=== PATIENT | male | born 1995 | race Caucasian/White ===

== ENCOUNTER 2023-01-16 00:39 | Inpatient (IN) | payer BC, OTHER ==
[~2023-01-16] VITALS: Ht 172.7 cm; Wt 78.0 kg
[2023-01-16] MEDS ORDERED: SODIUM CHLORIDE 0.9% 1,000 ML IV ONE ×2 (01:45→17:00)
[2023-01-16 01:46] LABS: HEMATOCRIT 47.7 % (41-53); HEMOGLOBIN 14.9 g/dL (13.5-17.5); MEAN CORPUSCULAR HEMOGLOBIN 28.2 pg (26.0-34.0); MEAN CORPUSCULAR HGB CONC 31.2 G/dL (31.0-37.0); MEAN CORPUSCULAR VOLUME 91 fL (80-100); PLATELET COUNT (AUTO) 328 K/uL (150-450); RED BLOOD CELL COUNT(AUTO) 5.27 MIL/uL (4.50-5.90); RED CELL DISTRIBUTION WIDTH 13.5 % (11.5-14.5)
[2023-01-16 01:51] LABS: GLUCOMETER DEV NAME(LOC) ER.6; GLUCOSE,POINT OF CARE 565 MG/DL (70-110)
[2023-01-16] MEDS ORDERED: ONDANSETRON HCL 4 MG/2 ML VIAL IVP ONE (02:00)
[2023-01-16 02:07] LABS: ALBUMIN 4.5 g/dL (3.4-5.0); BILIRUBIN,TOTAL 0.7 mg/dL (0.1-1.0); CALCIUM, TOTAL 9.1 mg/dL (8.8-10.5); CREATININE 1.74 mg/dL (0.60-1.30); TOTAL PROTEIN, SERUM 7.8 g/dL (6.4-8.2)
[2023-01-16 02:10] LABS: POTASSIUM 6.5 mmol/L (3.5-5.1)
[2023-01-16] MEDS ORDERED: SODIUM CHLORIDE 0.9% 1,000 ML IV SCH (02:15)
[2023-01-16] MEDS ORDERED: DEXTROSE 50%-WATER 25 GM/50 ML SYRINGE IVP PRN ×2 (02:15→17:00)
[2023-01-16] MEDS ORDERED: POTASSIUM CHLORIDE 40 MEQ in SODIUM CHLORIDE 0.45% 1,000 ML IV PRN (02:15)
[2023-01-16] MEDS ORDERED: 0.9% SODIUM CHLORIDE 10 ML SYRINGE IVP PRN (02:15)
[2023-01-16] MEDS ORDERED: INSULIN REGULAR, HUMAN 100 UNITS/ML IVP ONE (02:15)
[2023-01-16] MEDS ORDERED: DEXTROSE 5%-0.45% SODIUM CHL 1,000 ML IV PRN (02:15)
[2023-01-16] MEDS ORDERED: ONDANSETRON HCL 4 MG/2 ML VIAL IVP PRN ×2 (02:15→07:45)
[2023-01-16] MEDS ORDERED: SODIUM CHLORIDE 0.45% 1,000 ML IV PRN (02:15)
[2023-01-16] MEDS ORDERED: ACETAMINOPHEN 325 MG TABLET PO PRN ×2 (02:15→07:45)
[2023-01-16 02:23] LABS: MAGNESIUM 2.3 mg/dL (1.80-2.40)
[2023-01-16 02:32] LABS: APPEARANCE,URINE CLEAR (CLEAR); BILIRUBIN,URINE NEGATIVE (NEGATIVE); GLUCOSE, URINE (UA) >=1000 mg/dL (NEGATIVE); KETONES,URINE =>150 mg/dL (NEGATIVE); LEUKOCYTE ESTERASE ,URINE NEGATIVE (NEGATIVE); NITRATE,URINE NEGATIVE (NEGATIVE); OCCULT BLOOD,URINE TRACE (NEGATIVE); PROTEIN,URINE TRACE mg/dL (NEGATIVE); SPECIFIC GRAVITIY, URINE 1.019 (1.003-1.030); UROBILINOGEN,URINE <=1.0 mg/dL (<=1.0)
[2023-01-16 02:33] LABS: BAND NEUTROPHILS % (MANUAL) 32 % (0-5); LYMPHOCYTES % (MANUAL) 5 % (22-44); MONOCYTES % (MANUAL) 5 % (2-9); SEGMENTED NEUTROPHILS % 58 % (40-70)
[2023-01-16 02:36] LABS: ABG BASE EXCESS -26.4 mmol/L (-2.0-3.0); ABG CARBOXYHEMOGLOBIN 0.6 % (0.0-3.0); ABG METHEMOGLOBIN 0.2 % (0.0-1.5); ABG OXYGEN CONTENT 20.1 mL/dL (15.0-23.0); ABG OXYGEN SATURATION 97.5 % (95.0-98.0); ABG OXYHEMOGLOBIN 96.7 % (94.0-100.0); ABG TOTAL HEMOGLOBIN 14.7 G/dL (12.0-18.0); PO2, ARTERIAL BG 115.7 mmHg (80.0-100.0); SOURCE, BLOOD GAS ARTERIAL; TEMPERATURE, FAHRENHEIT, BG 98.5 FAHREN (96.0-98.6)
[2023-01-16 02:38] LABS: ABG HCO3 7.7 mmol/L (22.0-26.0); ABG PCO2 19 mmHg (35-45); ABG PH 7.015 (7.350-7.450); SITE, BLOOD GAS RT BRACHIAL
[2023-01-16 02:51] LABS: GLUCOMETER DEV NAME(LOC) ER.6; GLUCOSE,POINT OF CARE 521 MG/DL (70-110)
[2023-01-16 03:00] LABS: BACTERIA,URINE None Seen /HPF (None Seen); RBC,URINE None Seen /HPF (0-2); SQUAMOUS EPITHELIAL CELL,UR None Seen /LPF (None Seen); WBC,URINE None Seen /HPF (0-5)
[2023-01-16] MEDS: INSULIN REGULAR, HUMAN 100 UNITS in SODIUM CHLORIDE 0.9% 99 ML IV PRN ×4 (03:36→14:41)
[2023-01-16 04:00] LABS: COVID AG,FIA SOURCE NASAL SWAB
[2023-01-16] MEDS ORDERED: ALBUTEROL SULFATE 2.5 MG/0.5 ML 5 ML NEB SOLUTION NEB ONE (04:15)
[2023-01-16 04:30] VITALS: BP 128/71; PULSE 138; RESP 27; TEMP 98.3
[2023-01-16 04:35] LABS: GLUCOMETER DEV NAME(LOC) ER.6; GLUCOSE,POINT OF CARE 453 MG/DL (70-110)
[2023-01-16] MEDS: INSULIN REGULAR, HUMAN 100 UNITS/ML IVP PRN ×2 (04:51→05:36)
[2023-01-16 05:49] LABS: ALBUMIN 4.2 g/dL (3.4-5.0); BILIRUBIN,TOTAL 0.6 mg/dL (0.1-1.0); CALCIUM, TOTAL 8.1 mg/dL (8.8-10.5); CREATININE 1.47 mg/dL (0.60-1.30); MAGNESIUM 2.3 mg/dL (1.80-2.40); POTASSIUM 4.7 mmol/L (3.5-5.1); TOTAL PROTEIN, SERUM 7.7 g/dL (6.4-8.2)
[2023-01-16 06:05] LABS: BASOPHILS % (AUTO) 0.1 % (0.0-2.0); EOSINOPHILS % (AUTO) 0 % (1.0-6.0); HEMATOCRIT 45.7 % (41-53); HEMOGLOBIN 14.8 g/dL (13.5-17.5); LYMPHOCYTES % (AUTO) 3.5 % (22.0-44.0); MEAN CORPUSCULAR HEMOGLOBIN 29.1 pg (26.0-34.0); MEAN CORPUSCULAR HGB CONC 32.5 G/dL (31.0-37.0); MEAN CORPUSCULAR VOLUME 89 fL (80-100); MONOCYTES # (AUTO) 1.7 K/uL (0.1-1.0); MONOCYTES % (AUTO) 6.2 % (2.0-9.0); NEUTROPHILS # (AUTO) 25.3 K/uL (1.8-7.7); PLATELET COUNT (AUTO) 271 K/uL (150-450); RED BLOOD CELL COUNT(AUTO) 5.11 MIL/uL (4.50-5.90); RED CELL DISTRIBUTION WIDTH 13.1 % (11.5-14.5)
[2023-01-16 06:25] LABS: NEUTROPHILS % (AUTO) 90.2 % (40.0-70.0)
[2023-01-16 07:11] LABS: GLUCOSE,POINT OF CARE 234 MG/DL (70-110)
[2023-01-16 07:11] LABS: GLUCOSE,POINT OF CARE 321 MG/DL (70-110)
[2023-01-16 07:11] LABS: GLUCOSE,POINT OF CARE 267 MG/DL (70-110)
[2023-01-16] MEDS: POTASSIUM CHL 20 MEQ/0.45% NS 1,000 ML IV PRN ×2 (07:53→13:44)
[2023-01-16] MEDS: PANTOPRAZOLE SODIUM 40 MG/VIAL IVP SCH (08:39)
[2023-01-16] MEDS: DOCUSATE SODIUM 100 MG CAPSULE PO SCH ×2 (08:40→21:00)
[2023-01-16] MEDS: HEPARIN SODIUM,PORCINE 5,000 UNITS/ML VIAL SQ SCH ×2 (08:40→16:00)
[2023-01-16 09:57] LABS: ANION GAP 16 mmol/L (8-16); CALCIUM, TOTAL 7.8 mg/dL (8.8-10.5); CARBON DIOXIDE 12 mmol/L (22-29); CHLORIDE 108 mmol/L (98-107); CREATININE 1.28 mg/dL (0.60-1.30); GLOMERULAR FILTR. RATE CALC > 60 mL/min (>60); GLUCOSE,RANDOM 215 mg/dL (70-110); POTASSIUM 4.6 mmol/L (3.5-5.1); SODIUM SERUM 136 mmol/L (136-145)
[2023-01-16 10:02] VITALS: BP 97/60; PULSE 109; RESP 20; TEMP 98.4
[2023-01-16 11:39] LABS: ABG BASE EXCESS -14.5 mmol/L (-2.0-3.0); ABG CARBOXYHEMOGLOBIN 0.9 % (0.0-3.0); ABG HCO3 14.5 mmol/L (22.0-26.0); ABG OXYGEN CONTENT 18.8 mL/dL (15.0-23.0); ABG OXYGEN SATURATION 97.4 % (95.0-98.0); ABG OXYHEMOGLOBIN 96.5 % (94.0-100.0); ABG PCO2 30 mmHg (35-45); ABG TOTAL HEMOGLOBIN 13.8 G/dL (12.0-18.0); PO2, ARTERIAL BG 91.5 mmHg (80.0-100.0); SOURCE, BLOOD GAS ARTERIAL; TEMPERATURE, FAHRENHEIT, BG 98.3 FAHREN (96.0-98.6)
[2023-01-16 11:40] LABS: ABG A-A DIFF O2 22.8 mmHg (10-20.0); ABG PH 7.251 (7.350-7.450); O2 DEVICE,BLOOD GAS ROOM AIR (ROOM AIR); SITE, BLOOD GAS LFT RADIAL
[2023-01-16 12:00] VITALS: BP 96/62; PULSE 99; RESP 20; TEMP 98.4
[2023-01-16 15:15] LABS: ANION GAP 10 mmol/L (8-16); CALCIUM, TOTAL 7.8 mg/dL (8.8-10.5); CARBON DIOXIDE 18 mmol/L (22-29); CHLORIDE 108 mmol/L (98-107); CREATININE 1.13 mg/dL (0.60-1.30); GLOMERULAR FILTR. RATE CALC > 60 mL/min (>60); GLUCOSE,RANDOM 107 mg/dL (70-110); POTASSIUM 3.8 mmol/L (3.5-5.1); SODIUM SERUM 136 mmol/L (136-145)
[2023-01-16 15:33] LABS: HEMOGLOBIN A1C 8.8 % (3.8-5.6)
[2023-01-16 16:00] VITALS: BP 97/54; PULSE 96; RESP 20; TEMP 98.3
[2023-01-16 20:00] VITALS: BP 101/60; PULSE 94; RESP 16; TEMP 98.3
[2023-01-16] MEDS ORDERED: INSULIN GLARGINE,HUM.REC.ANLOG 100 UNITS/ML SQ SCH (21:00)
[2023-01-16 21:11] LABS: GLUCOSE,POINT OF CARE 113 MG/DL (70-110)
[2023-01-16 21:11] LABS: GLUCOSE,POINT OF CARE 91 MG/DL (70-110)
[2023-01-16 21:11] LABS: GLUCOSE,POINT OF CARE 223 MG/DL (70-110)
[2023-01-16 21:11] LABS: GLUCOSE,POINT OF CARE 161 MG/DL (70-110)
[2023-01-16 21:11] LABS: GLUCOSE,POINT OF CARE 221 MG/DL (70-110)
[2023-01-16 21:11] LABS: GLUCOSE,POINT OF CARE 206 MG/DL (70-110)
[2023-01-16 21:11] LABS: GLUCOSE,POINT OF CARE 59 MG/DL (70-110)
[2023-01-16 21:11] LABS: GLUCOSE,POINT OF CARE 149 MG/DL (70-110)
[2023-01-16 21:11] LABS: GLUCOSE,POINT OF CARE 175 MG/DL (70-110)
[2023-01-16 21:31] LABS: GLUCOSE,POINT OF CARE 285 MG/DL (70-110)
[2023-01-17] VITALS: BP 105/52; PULSE 95; RESP 20; TEMP 97.6
[2023-01-17] MEDS: HEPARIN SODIUM,PORCINE 5,000 UNITS/ML VIAL SQ SCH ×2 (00:55→08:31)
[2023-01-17] MEDS: INSULIN LISPRO 100 UNITS/ML SQ PRN ×2 (01:04→06:10)
[2023-01-17 04:00] VITALS: BP 127/112; PULSE 102; RESP 20; TEMP 98.3
[2023-01-17 05:27] LABS: BASOPHILS % (AUTO) 0.5 % (0.0-2.0); EOSINOPHILS % (AUTO) 0.1 % (1.0-6.0); HEMATOCRIT 40.1 % (41-53); HEMOGLOBIN 13.4 g/dL (13.5-17.5); LYMPHOCYTES # (AUTO) 2.2 K/uL (1.0-4.8); LYMPHOCYTES % (AUTO) 12.5 % (22.0-44.0); MEAN CORPUSCULAR HEMOGLOBIN 29.1 pg (26.0-34.0); MEAN CORPUSCULAR HGB CONC 33.5 G/dL (31.0-37.0); MEAN CORPUSCULAR VOLUME 87 fL (80-100); MONOCYTES # (AUTO) 1.2 K/uL (0.1-1.0); MONOCYTES % (AUTO) 6.7 % (2.0-9.0); NEUTROPHILS # (AUTO) 13.8 K/uL (1.8-7.7); NEUTROPHILS % (AUTO) 80.2 % (40.0-70.0); PLATELET COUNT (AUTO) 205 K/uL (150-450); RED BLOOD CELL COUNT(AUTO) 4.61 MIL/uL (4.50-5.90); RED CELL DISTRIBUTION WIDTH 13.3 % (11.5-14.5)
[2023-01-17 05:35] LABS: ANION GAP 14 mmol/L (8-16); CALCIUM, TOTAL 8.1 mg/dL (8.8-10.5); CARBON DIOXIDE 15 mmol/L (22-29); CHLORIDE 105 mmol/L (98-107); CREATININE 1.03 mg/dL (0.60-1.30); GLOMERULAR FILTR. RATE CALC > 60 mL/min (>60); GLUCOSE,RANDOM 153 mg/dL (70-110); POTASSIUM 3.9 mmol/L (3.5-5.1); SODIUM SERUM 134 mmol/L (136-145)
[2023-01-17 06:36] LABS: GLUCOSE,POINT OF CARE 286 MG/DL (70-110)
[2023-01-17 06:36] LABS: GLUCOSE,POINT OF CARE 151 MG/DL (70-110)
[2023-01-17 08:00] VITALS: BP 106/52; PULSE 103; RESP 22; TEMP 98.6
[2023-01-17] MEDS: PANTOPRAZOLE SODIUM 40 MG/VIAL IVP SCH (08:30)
[2023-01-17] MEDS: DOCUSATE SODIUM 100 MG CAPSULE PO SCH (09:00)
== END 2023-01-17 10:35 | disposition home or self-care (01) | DRG 682 ==
LOC: EMS 00:39 → ICU 03:55
PROVIDERS: ADMIT Internal Medicine; ATTEND Internal Medicine
DX: N17.9 Acute kidney failure, unspecified (principal); E10.10 Type 1 diabetes mellitus with ketoacidosis without coma; R65.11 Systemic inflammatory response syndrome (SIRS) of non-infectious origin with acute organ dysfunction; E87.1 Hypo-osmolality and hyponatremia; E86.0 Dehydration; Z20.822 Contact with and (suspected) exposure to COVID-19; E87.5 Hyperkalemia; Z79.4 Long term (current) use of insulin; Z83.3 Family history of diabetes mellitus
CPT/HCPCS: 36600; 71045; 74176; 80048; 80053; 81001; 82009; 82805; 82962; 83036; 83690; 83735; 83930; 85025; 87040; 87081; 93005; 99291; C9113; G0378; J1644; J1815; J2405; J3480; J7030; J7050; Q9967; 36415-L1; 36415-TC